=== PATIENT | female | born 1940 | race Hispanic/Latino ===

== ENCOUNTER 2017-12-07 16:05 | Emergency (ER) | payer BC, MEDICARE ==
[2017-12-07 16:23] VITALS: RESP 20
--- NOTE | 2017-12-07 17:21 | C.PDOC ---
History Of Present Illness <Klaudia Ac - Last Filed: 12/07/17 18:17> <Chantel Flanagan - Last Filed: 12/07/17 19:13> SP TRIP AND FALL SPACER TYPE BAR AND SEGMENT CO HEAD LAC. STRUCK EDGE OF BOOKCASE. NO LOC, [place] DENIES OTHER ASSOC SX OR TRAUMA EXAM NAD NONTOXIC HEENT SWELLING OCCIPITAL SCALP NO SCALP DEPRESSION GEN TEND NEURO NO FOCAL DEF SKIN +2-3 CM LINEAR LAC OCCIPITAL AREA MIN ACTIVE BLEEDING NO FB REMAINDER NEG (Klaudia Ac) <Klaudia Ac - Last Filed: 12/07/17 18:17> <Chantel Flanagan - Last Filed: 12/07/17 19:13> Time Seen by Provider: 12/07/17 17:03 Chief Complaint (Nursing): Abnormal Skin Integrity Past Medical History - Social History Hx Alcohol Use: No Hx Substance Use: No - Immunization History Hx Tetanus Toxoid Vaccination: Yes Hx Influenza Vaccination: No Hx Pneumococcal Vaccination: No <Klaudia Ac - Last Filed: 12/07/17 18:17> Family History: States: Unknown Family Hx <Chantel Flanagan - Last Filed: 12/07/17 19:13> Vital Signs: Last Vital Signs Temp 98.2 F 12/07/17 16:19 Pulse 78 12/07/17 16:19 Resp 20 12/07/17 16:19 BP 151/88 H 12/07/17 16:19 Pulse Ox 96 12/07/17 18:22 ED Course And Treatment O2 Sat by Pulse Oximetry: 96 <Klaudia Ac - Last Filed: 12/07/17 18:17> - CT Scan/US CT head Other Rad Studies (CT/US): Read By Radiologist, Radiology Report Reviewed CT/US Interpretation: No acute intracranial findings. Reassessment Condition: Improved <Chantel Flanagan - Last Filed: 12/07/17 19:13> Laceration - Laceration Repair 1 Wound Length (In cm): 2.5 Description Of Wound: Linear, Clean Wound Cleansed With: Sterile Saline Anesthesia: Lidocaine 2% Wound Examination: Irrigated With Saline Wound Closure: [place] (6) Wound Complexity: Simple <Klaudia Ac - Last Filed: 12/07/17 18:17> Progress - Data Reviewed Data Reviewed: Diagnostic imaging <Klaudia Ac - Last Filed: 12/07/17 18:17> <Chantel Flanagan - Last Filed: 12/07/17 19:13> - Re-Evaluation Re-evaluation Note: 12/07/17 18:17 APPEARS COMFORTABLE NAD READING BOOK. NEURO INTACT. CT PENDING (Klaudia Ac) Disposition - Disposition Disposition Time: 18:30 <Klaudia Ac - Last Filed: 12/07/17 18:17> Counseled Patient/Family Regarding: Studies Performed, Diagnosis, Need For Followup - Disposition Disposition Time: 19:11 <Chantel Flanagan - Last Filed: 12/07/17 19:13> - Disposition Referrals: Bindu Gates MD [Staff Provider] - Disposition: HOME/ ROUTINE Condition: IMPROVED Additional Instructions: Follow up with your doctor in 2-3 days for a wound check. Staple removal in 1-2 weeks. Return to the ER if you develop vomiting, weakness, fever, redness, pus drainage, worsening of symptoms or if you have any other concerns. Instructions: Laceration Repair With [place] (DC), Head Injury (ED) Forms: [employer] (Vietnamese) - Clinical Impression Clinical Impression: Head injury, Scalp laceration Physician Patient Turnover Patient Signed Over To: Chantel Flanagan Handoff Comments: FU CT <Klaudia Ac - Last Filed: 12/07/17 18:17>
[2017-12-07] MEDS ORDERED: Lidocaine 2% MPF (5 ml) Inj ONE (17:23)
[2017-12-07 19:32] VITALS: BP 149/78; PULSE 82; TEMP 98.1; O2SAT 98
--- NOTE | 2017-12-08 08:01 | CT ---
PROCEDURE: CT HEAD WITHOUT CONTRAST. HISTORY: TRAUMA COMPARISON: None available. TECHNIQUE: Axial computed tomography images were obtained through the head/brain without intravenous contrast. Radiation dose: Total exam DLP = 868 mGy-cm. This CT exam was performed using one or more of the following dose reduction techniques: Automated exposure control, adjustment of the mA and/or kV according to patient size, and/or use of iterative reconstruction technique. FINDINGS: HEMORRHAGE: No intracranial hemorrhage. BRAIN: Scattered focal lucencies in the subcortical and periventricular white matter suggestive for chronic microvascular ischemic change. Mild cerebral volume loss. Punctate left caudate head lacunar infarct. Additional right basal ganglia lacunar infarct. VENTRICLES: Unremarkable. No hydrocephalus. CALVARIUM: Unremarkable. PARANASAL SINUSES: Unremarkable as visualized. No significant inflammatory changes. MASTOID AIR CELLS: Unremarkable as visualized. No inflammatory changes. OTHER FINDINGS: Mild edema and swelling of the occipital scalp. Adjacent air pockets and soft tissue defect indicating laceration. Intracranial arterial calcifications. IMPRESSION: No acute intracranial abnormality. Soft tissue swelling indicating posttraumatic contusion. Chronic microvascular ischemic changes. These findings were preliminarily reported at 7:01 p.m. on 12/07/[address] Piter Thacker from [facility].
== END 2017-12-07 19:32 | disposition home or self-care (01) ==
LOC: C.ER 16:05
DX: S01.01XA Laceration without foreign body of scalp, initial encounter (principal); W01.190A Fall on same level from slipping, tripping and stumbling with subsequent striking against furniture, initial encounter; Y92.9 Unspecified place or not applicable